=== PATIENT | male | born 1960 | race Caucasian/White ===

== ENCOUNTER 2021-08-05 08:58 | Emergency (ER) | payer OTHER, SELFPAY ==
[2021-08-05 09:03] VITALS: BP 153/82; PULSE 80; RESP 16; TEMP 36.5; O2SAT 99
[2021-08-05 09:30] VITALS: BP 146/85; PULSE 72; RESP 16; O2SAT 100
[2021-08-05 09:37] LABS: Basophils Absolute Auto 0.1 K/mm3 (0.0-0.1); Basophils Percent Auto 1.1 % (0.2-1.2); Eosinophils Absolute Auto 0.1 K/mm3 (0-0.3); Eosinophils Percent Auto 1.9 % (0-4.4); Hematocrit 39.4 % (42.0-52.0); Hemoglobin 13.5 g/dL (14.0-18.0); Immature Granulocyte Absolute 0.02 K/mm3 (0.00-0.031); Immature Granulocyte Percent A 0.3 % (0-0.5); Lymphocytes Absolute Auto 2.42 K/mm3 (0.9-3.2); Lymphocytes Percent Auto 32.4 % (18.3-44.2); Mean Corpuscular HGB Conc 34.3 g/dl (32-36); Mean Corpuscular Hemoglobin 31.5 pg (26-34); Mean Corpuscular Volume 92.1 fl (80-100); Mean Platelet Volume 9.7 fl (7.4-10.4); Monocytes Absolute Auto 0.6 K/mm3 (0.1-0.6); Monocytes Percent Auto 7.9 % (2.6-8.5); Neutrophils Absolute Auto 4.2 K/mm3 (1.3-6.7); Neutrophils Percent Auto 56.4 % (45.5-73.1); Platelet Count Result 229 k/mm3 (150-375); Red Blood Count 4.28 M/mm3 (4.6-6.20); Red Cell Distribution Width 13.1 % (11.5-14.5); White Blood Count 7.5 K/mm3 (4.5-10.0)
--- NOTE | 2021-08-05 10:11 | ECG_ITS ---
Measurements Intervals Sikes Rate: 68 P: 7 NC: 131 QRS: -6 QRSD: 104 T: 5 QT: 368 QTc: 393 Interpretive Statements SINUS RHYTHM BASELINE ARTIFACT- II, III, AVR, AVF, V3-V6 NORMAL ECG Electronically Signed On 08-05-2021 10:34:43 [employer] by Michele Ching D.O.
[2021-08-05 10:17] LABS: Alanine Aminotransferase 26 U/L (4-50); Albumin Level 4.7 g/dL (3.5-5.1); Alkaline Phosphatase 41 U/L (38-126); Anion Gap 10 mmol/L (8-16); Aspartate Amino Transferase 33 U/L (17-59); Bilirubin,Total 0.4 mg/dL (0.2-1.3); Blood Urea Nitrogen 18 mg/dL (9-20); Calcium 9.3 mg/dL (8.4-10.2); Carbon Dioxide 22 mmol/L (22-30); Chloride 107 mmol/L (98-107); Estimated CRCL calculation 92 ml/min; Estimated Glomerular Filt Rate > 60; Glucose 103 mg/dL (65-110); Potassium 4.8 mmol/L (3.4-5.0); Sodium 139 mmol/L (137-145)
[2021-08-05 10:20] LABS: Troponin I 0.016 ng/mL (0.000-0.034)
--- NOTE | 2021-08-05 10:32 | ED.RECABL ---
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 Per patient blood pressure at the office was 220/110. Patient denies headaches, dizziness, chest pain, shortness of breath, or pain radiating the left arm. Patient denies visual changes. Patient states he was last at his physician a couple months ago and had labs drawn then. Related Data Home Medications Medication Instructions Recorded Confirmed lisinopril 10 mg PO DAILY 08/05/21 meloxicam 7.5 mg PO BID 08/05/21 metformin 500 mg PO DAILY 08/05/21 Allergies Allergy/AdvReac Type Severity Reaction Status Date / Time No Known Allergies Allergy Verified 08/05/21 09:05 Review of Systems Constitutional: Constitutional: Reports as per HPI and Reports no additional constitutional complaints Eyes: Eyes: Reports no additional eye complaints ENT: Reports system reviewed and no additional complaints, except as documented Cardiovascular: Cardiovascular: Reports no additional cardiovascular complaints Respiratory: Respiratory: Reports no additional respiratory complaints Gastrointestinal: Gastrointestinal: Reports no additional gastrointestinal complaints Musculoskeletal: Musculoskeletal: Reports no additional musculoskeletal complaints Neurologic: Reports system reviewed and no additional complaints, except as documented Exam Narrative: GENERAL: Well-appearing, well-nourished, and in no acute distress. HEAD: Normocephalic, atraumatic. EYES: PERRLA and EOMI. ENT: Nares clear, no rhinorrhea or epistaxis. Mucous membranes moist. Oropharynx without tonsillar hypertrophy exudate or other lesions. Bilateral TMs pearly connor nonbulging NECK: Supple. No adenopathy or masses. No carotid bruits or JVD CHEST: Clear to auscultation. No respiratory distress. No wheezes rales or rhonchi HEART: Regular rate and rhythm. No murmur heard. Normal peripheral pulses. ABDOMEN: Soft, nontender, nondistended, normal active bowel sounds. EXTREMITIES: Normal range of motion. No edema. SKIN: Warm, dry, no rash. NEURO: No focal deficits. Alert and oriented x3. PSYCH: Normal mood and affect. Course Course Emergency Course: Patient without dizziness, chest pain, visual changes, or any other concerns during stay. BP 136/87. Will discharge home with plan follow up with primary. Vital Signs Vital signs: Vital Signs Temperature 36.5 C 08/05/21 09:03 Pulse Rate 80 08/05/21 09:03 Respiratory Rate 16 08/05/21 09:03 Blood Pressure 153/82 H 08/05/21 09:03 Pulse Oximetry 99 08/05/21 09:03 Temperature 36.5 C 08/05/21 09:03 Pulse Rate 74 08/05/21 10:39 Respiratory Rate 18 08/05/21 10:39 Blood Pressure 136/87 08/05/21 10:39 Pulse Oximetry 100 08/05/21 10:39 MDM - Recheck/Abnormal Lab/Rx MDM Narrative Medical decision making narrative: Upon assessment patient blood pressure 150s over 90s. Patient denies any issues. Will do CBC, CMP, troponin, and EKG. Will monitor blood pressure during stay. Differential Diagnosis Differential diagnosis: Likely other (encoutnter for high blood pressure) Lab Data Result diagrams: 08/05/21 09:12 08/05/21 09:12 Labs: Lab Results 08/05/21 08/05/21 Range/Units 09:12 09:12 WBC 7.5 (4.5-10.0) K/mm3 RBC 4.28 L (4.6-6.20) M/mm3 Hgb 13.5 L (14.0-18.0) g/dL Hct 39.4 L (42.0-52.0) % MCV 92.1 (80-100) fl MCH 31.5 (26-34) pg MCHC 34.3 (32-36) g/dl RDW 13.1 (11.5-14.5) % Plt Count 229 (150-375) k/mm3 MPV 9.7 (7.4-10.4) fl Immature Gran % (Auto) 0.3 (0-0.5) % Neut % (Auto) 56.4 (45.5-73.1) % Lymph % (Auto) 32.4 (18.3-44.2) % Beckham % (Auto) 7.9 (2.6-8.5) % Eos % (Auto) 1.9 (0-4.4) % Baso % (Auto) 1.1
[2021-08-05 10:39] VITALS: BP 136/87; PULSE 74; RESP 18; O2SAT 100
== END 2021-08-05 11:22 | disposition home or self-care (01) ==
PROVIDERS: Emergency Medicine; Emergency Provider Nurse Practitioner Family
DX: I10 Essential (primary) hypertension (principal)
CPT/HCPCS: 36415; 80053; 84484; 85025; 93005; 99284